=== PATIENT | male | born 1985 | race American Indian/Alaskan Native ===

== ENCOUNTER 2018-10-03 22:14 | Emergency (ER) | payer SELFPAY ==
--- NOTE | 2018-10-03 23:20 | Emergency Department Report ---
ED General Adult HPI - General Chief complaint: Psych Stated complaint: SUICIDAL IDEATIONS Time Seen by Provider: 10/03/18 23:03 Source: patient, EMS Mode of arrival: Stretcher Limitations: No Limitations - History of Present Illness Initial comments: 32 y.o. male with a history of HIV, Asthma presents after taking 7-10 excedrin pills in effort to kill self. Patient initially admits to suicidal ideation, depression and extreme stress and hopelessness. Patient currently denies SI, HI or auditory hallucinations. Patient states he had no prior inpatient stays in inpatient psychiatric facility. Patient states he took the Excedrin pills at 7 PM. Patient denies any vomiting. Patient denies any chest pain or shortness of breath. - Related Data Allergies Allergy/AdvReac Type Severity Reaction Status Date / Time No Known Allergies Allergy Verified 10/03/18 23:35 ED Review of Systems ROS: Stated complaint: SUICIDAL IDEATIONS Other details as noted in HPI Constitutional: denies: chills, fever Eyes: denies: eye pain, eye discharge, vision change ENT: denies: ear pain, throat pain Respiratory: denies: cough, shortness of breath, wheezing Cardiovascular: denies: chest pain, palpitations Endocrine: no symptoms reported Gastrointestinal: denies: abdominal pain, nausea, diarrhea Genitourinary: denies: urgency, dysuria Musculoskeletal: denies: back pain, joint swelling, arthralgia Skin: denies: rash, lesions Neurological: denies: headache, weakness, paresthesias Psychiatric: denies: anxiety, depression Hematological/Lymphatic: denies: easy bleeding, easy bruising ED Past Medical Hx - Past Medical History Previous Medical History?: Yes Hx Hypertension: Yes Hx Asthma: Yes Hx HIV: Yes - Surgical History Past Surgical History?: No - Social History Smoking Status: Former Smoker Substance Use Type: None ED Physical Exam - General Limitations: No Limitations General appearance: alert, other (angry; ) - Head Head exam: Present: atraumatic, normocephalic - Eye Eye exam: Present: normal appearance - ENT ENT exam: Present: mucous membranes moist - Neck Neck exam: Present: normal inspection - Respiratory Respiratory exam: Present: normal lung sounds bilaterally. Absent: respiratory distress - Cardiovascular Cardiovascular Exam: Present: regular rate, normal rhythm. Absent: systolic murmur, diastolic murmur, rubs, gallop - GI/Abdominal GI/Abdominal exam: Present: soft, normal bowel sounds - Rectal Rectal exam: Present: deferred - Extremities Exam Extremities exam: Present: normal inspection - Back Exam Back exam: Present: normal inspection - Neurological Exam Neurological exam: Present: alert, oriented X3 - Expanded Psychiatric Exam Expanded Focused psych exam: Present: other (angry; uncooperative) - Skin Skin exam: Present: warm, dry, intact, normal color. Absent: rash ED Course Vital Signs 10/03/18 10/04/18 10/04/18 22:21 00:15 00:31 Temperature 98.1 F Pulse Rate 80 67 72 Respiratory 12 16 14 Rate Blood Pressure 127/91 122/89 127/91 O2 Sat by Pulse 99 100 99 Oximetry 10/04/18 10/04/18 10/04/18 00:45 01:31 01:45 Temperature Pulse Rate 69 64 67 Respiratory 17 15 13 Rate Blood Pressure 122/89 111/66 111/66 O2 Sat by Pulse 100 98 99 Oximetry ED Medical Decision Making - Lab Data Result diagrams: 10/03/18 23:53 10/03/18 23:53 - Medical Decision Making Case discussed with poison control and patient to obtain lab work to determine Tylenol level as well as electronic, and hepatic function panel. Patient will be monitored for 16 hours status post time ingestion which was 7 PM. Patient to receive Ativan and Geodon therapy as he is uncooperative and stating that he will leave the emergency department. With a concern for patient's suicidality patient was placed on a 1013 and will await psychiatry consultation. Patient is medically clear and has been observed for 6 hour period from time of ingestion. - Differential Diagnosis Acute Psychosis; Electrolyte Abnormality; Anemia; Polysubstance Abuse; Critical care attestation.: If time is entered above; I have spent that time in minutes in the direct care of this critically ill patient, excluding procedure time. ED Disposition Clinical Impression: Psychosis, Overdose Disposition: [id number]/TX-[id number] ANOTHER TYPE HLTHCARE Is pt being admited?: No Condition: Stable Time of Disposition: 02:16 Print Language: GEORGIAN
[2018-10-03] MEDS ORDERED: ATIVAN IM STA (23:23)
[2018-10-03] MEDS ORDERED: GEODON IM ONE (23:23)
[2018-10-03 23:31] LABS: Bilirubin,Urine NEG (Negative); Blood,Urine NEG (Negative); Color,Urine Yellow (Yellow); Mucus,Urine 3+ /HPF
[2018-10-03 23:35] LABS: Amphetamine Screen,Urine PRESUMPTIVE NEGATIVE; Benzodiazepines Screen,Urine PRESUMPTIVE NEGATIVE; Cannabinoid Screen,Urine PRESUMPTIVE NEGATIVE; Cocaine Screen,Urine PRESUMPTIVE NEGATIVE; Methadone Screen,Urine PRESUMPTIVE NEGATIVE; Opiate Screen,Urine PRESUMPTIVE NEGATIVE
[2018-10-03] MEDS ORDERED: WATER FOR INJ Sterile (PF) 10 ML ONE (23:36)
[2018-10-04 00:09] LABS: Basophils % (Auto) 0.1 % (0.0-1.8); Eosinophils # (Auto) 0.1 K/mm3 (0.0-0.4); Eosinophils % (Auto) 0.9 % (0.0-4.3); Hematocrit 40.9 % (35.5-45.6); Hemoglobin 13.4 gm/dl (11.8-15.2); Lymphocytes # (Auto) 1.4 K/mm3 (1.2-5.4); Lymphocytes % (Auto) 16.5 % (13.4-35.0); Mean Corpuscular HGB Conc 33 % (32-34); Mean Corpuscular Volume 85 fl (84-94); Monocytes # (Auto) 0.5 K/mm3 (0.0-0.8); Monocytes % (Auto) 5.3 % (0.0-7.3); Red Cell Distribution Width 13.7 % (13.2-15.2)
[2018-10-04 00:28] LABS: Platelet Count 189 K/mm3 (140-440)
[2018-10-04 00:38] LABS: Alanine Aminotransferase 7 units/L (7-56); Albumin 4.4 g/dL (3.9-5); Bilirubin,Direct < 0.2 mg/dL (0-0.2)
[2018-10-04 00:39] LABS: Alanine Aminotransferase 8 units/L (7-56); Albumin 4.3 g/dL (3.9-5); BUN/Creatinine Ratio 9; Blood Urea Nitrogen 9 mg/dL (9-20); Calcium 9.3 mg/dL (8.4-10.2); Hemolysis Index 28
--- NOTE | 2018-10-04 11:00 | Consultation ---
History of Present Illness - Reason for Consult Consult date: 10/04/18 Reason for consult: Mental Health Evaluation Requesting physician: BONNY REGALADO - Chief Complaint Chief complaint: "I lost 2 family members" - History of Present Psychiatric Illness 32 y.o. AA male who presented to the ER for taking several Excedrin pills. Today the patient was irritable during the assessment. He stated that he lost his father and grandmother () most recently. He rate his depression 5/10, with 10 being the worse. He was asked about his mental health, he stated "I'm stable now, I should be able to leave." He was vague about why he took the pills. He did state that this was his first time taking pills when asked. He denies SI/HI's. The patient is adamant that he do not need medication for his depressi on. Medications and Allergies Allergies Allergy/AdvReac Type Severity Reaction Status Date / Time No Known Allergies Allergy Verified 10/03/18 23:35 Past psychiatric history - Past Medical History Past Medical History: HIV/AIDS, other (Asthma) Past Surgical History: No surgical history - past Psychiatric treatment and history psychiatric treatment history: Denies a psy hx and a fam psy hx. Denies a fam psy hx. - Social History Social history: lives with family Mental Status Exam - Vital signs Last Vital Signs Temp 98.2 F 10/04/18 04:02 Pulse 58 L 10/04/18 06:00 Resp 13 10/04/18 06:00 BP 112/71 10/04/18 06:00 Pulse Ox 97 10/04/18 06:00 - Exam Narrative exam: MSE: Appearance: in hospital attire Behavior: poor eye contact Speech: regular rate and tone Mood: "okay" Affect: congruent to mood Thought Process: circumstantial Thought Content: denies SI/HI's and AVH's Motor Activity: lying in bed Cognition: A/O x 3 Insight: variable Judgment: poor Results Result Diagrams: 10/03/18 23:53 10/03/18 23:53 Abnormal lab results 10/03/18 10/03/18 10/03/18 Range/Units 23:10 23:53 23:53 Seg Neutrophils % 77.2 H (40.0-70.0) % Potassium 3.3 L (3.6-5.0) mmol/L Ur Specific [place] 1.032 H (1.003-1.030) Salicylates (2.8-20.0) mg/dL Acetaminophen (10.0-30.0) ug/mL 10/03/18 10/03/18 Range/Units 23:53 23:53 Seg Neutrophils % (40.0-70.0) % Potassium (3.6-5.0) mmol/L Ur Specific [place] (1.003-1.030) Salicylates < 0.3 L (2.8-20.0) mg/dL Acetaminophen < 5.0 L (10.0-30.0) ug/mL All other labs normal. Assessment and Plan Assessment and plan: Impression: MDD, Single Episode. Complicated Grieving. Today the patient was irritable during the assessment. The patient is minimizing his actions. Recommendations/Plan: Continue 1013. Discuss risks/benefits of SSRI's with the patient, he refused medication at this time. Dispo: The patient was referred to inpatient psy services. Will staff with Dr Archana Agarwal.
--- NOTE | 2018-10-05 10:32 | Progress Note ---
Subjective - Reason for Consult Consult date: 10/05/18 Reason for consult: Psychiatry Follow-up - Chief Complaint Chief complaint: "I understand what I did" 32 y.o. AA male who presented to the ER for taking several Excedrin pills. Today the patient was calm and cooperative during the assessment. The patient was more engaging. He stated that he spoke with a close friend and his mother about his actions. He stated, "I could went about this in a different way." He stated that he would like to see a therapist in the outpatient setting when discharged. He denies SI/HI's and AVH's. Mental Status Exam - Vital signs Last Vital Signs Temp 98.2 F 10/05/18 07:00 Pulse 84 10/05/18 07:00 Resp 18 10/05/18 07:00 BP 118/81 10/05/18 07:00 Pulse Ox 99 10/05/18 07:00 - Exam Narrative exam: MSE: Appearance: in hospital attire Behavior: regular eye contact Speech: regular rate and tone Mood: "okay" Affect: congruent to mood Thought Process: logical Thought Content: denies SI/HI's and AVH's Motor Activity: lying in bed Cognition: A/O x 3 Insight: fair Judgment: variable to fair Assessment and Plan Impression: MDD, Single Episode. Complicated Grieving. Today the patient was calm and cooperative during the assessment. Recommendations/Plan: Continue 1013. Discuss risks/benefits of SSRI's with the patient, he refused medication at this time. Dispo: The patient was referred to inpatient psy services. Will staff with Dr Archana Agarwal.
[2018-10-06 08:38] VITALS: BP 115/77
--- NOTE | 2018-10-06 12:10 | Progress Note ---
Subjective - Reason for Consult Consult date: 10/06/18 Reason for consult: Psychiatry Follow-up - Chief Complaint Chief complaint: "I know how to handle thing now" 32 y.o. AA male who presented to the ER for taking several Excedrin pills. Today the patient was calm and cooperative during the assessment. Per Farrukh the patient's fiancee at [phone], he stated that the patient was "stressed out." He stated that the patient isn't known to hurt himself in anyway. He stated that he will attend therapy sessions with the patient for support. The patient denies SI/HI's and AVH's. Mental Status Exam - Vital signs Last Vital Signs Temp 98.2 F 10/06/18 08:37 Pulse 60 10/06/18 08:37 Resp 16 10/06/18 08:37 BP 115/77 10/06/18 08:37 Pulse Ox 98 10/06/18 08:37 - Exam Narrative exam: MSE: Appearance: calm, cooperative Behavior: regular eye contact Speech: regular rate and tone Mood: "better" Affect: congruent to mood Thought Process: logical Thought Content: denies SI/HI's and AVH's Motor Activity: lying in bed Cognition: A/O x 3 Insight: appropriate Judgment: appropriate Assessment and Plan Impression: MDD, Single Episode. Complicated Grieving. Today the patient was calm and cooperative during the assessment. The patient is no threat to self. Suicide Risk Assessment I. This screening and assessment is based on information collected from the following sources: II. SUICIDE RISK SCREENING (within last 30 days): A.) Suicidal thoughts/behaviors: Yes SUICIDE RISK ASSESSMENT III. FACTORS THAT INCREASE RISK: A.) Demographic and Substance Use Factors: Yes (Marijuana, Cocaine, and Marijuana) B.) Current/Recent Factors (within past 3 months): Psychosocial/Environmental Factors: Life Stressors Physical Illness: None Cognitive/Psychological Factors: None C.) Historical Factors: None D.) Diagnostic/Symptom/Treatment Factors: None E.) Acute Risk Factor Severity (DESC; MILD/MOD/SEVERE): Mild Other factors for this individual that increase risk: None IV. FACTORS THAT DECREASE RISK: Resilience/Protective Factors: Patient want to decrease his stress Other factors for this individual that decrease risk: Patient denies a desire to harm self V. Clinician's Formulation of Risk and Determination of level of Care: This is a 32 y.o. AA male who ingested several Excedrin pills prior to his arrival to the ER. He acknowledged that he should have not ingested the pills. He stated that he will follow-up with outpatient psy services once discharged. Since being hospitalized the patient has consistently denied the desire to harm himself. Additionally, he has become insightful about how to better address his current issues. The patient is not impaired by substance. He is able to take care of his ADLs and is not at imminent risk of harm to self or others. Consequently, it is the opinion of the treatment team that the patient is at low risk of suicide and does not meet criteria to continue an involuntary psychiatric hold. Estimation of Imminent Risk: Low due to the above explanation. Determination of Level of Care based on Suicide Risk: Outpatient follow-up. Narrative description of clinical reasoning. Given the fact that the patient is willing to engage in outpatient psy services care and has a supportive network ([facility], i is reasonable to expect that the patient will seek services. At this current time, he is not impulsive and does not have any risk factors to increase the likelihood of his impulsive behavior. Therefore, it is reasonable to expect that the patient will engage in outpatient/rehab services which will reduce further unsafe behaviors. . Plan and Interventions based on Suicide Risk: This patient will likely be stepped down to an outpatient mental health center in the community upon discharge and follow-up within 7 days of his discharge from the hospital. VII. Discharge/After Hours Support Plan: Patient can return back to the ER, call 911 or crisis line if symptoms of depression, anxiety, suicidality return. Recommendations/Plan: Rescind 1013. Discussed risks/benefits of SSRI's with the patient, he prefer talk therapy at this time. Discussed generalized coping skill with the patient, he verbalized understanding. Dispo: The patient can follow up with [facility] for outpatient psy services. Staffed with Dr Archana Agarwal.
== END 2018-10-06 14:25 | disposition home or self-care (01) ==
LOC: EEVIPCON 22:14 → ED 22:14
DX: T39.011A Poisoning by aspirin, accidental (unintentional), initial encounter (principal); F23 Brief psychotic disorder; F32.9 Major depressive disorder, single episode, unspecified; J45.909 Unspecified asthma, uncomplicated; I10 Essential (primary) hypertension; Z21 Asymptomatic human immunodeficiency virus [HIV] infection status; Z87.891 Personal history of nicotine dependence; Y92.89 Other specified places as the place of occurrence of the external cause
CPT/HCPCS: 36415; 80048; 80053; 80076; 80307; 81001; 83735; 85025; 93005; 93010; 99284; J2060; J3486; 80320; G0480

== ENCOUNTER 2018-12-18 18:54 | Emergency (ER) | payer SELFPAY ==
[2018-12-18 19:09] VITALS: BP 133/86
--- NOTE | 2018-12-18 19:12 | Event Note ---
ED Screening Note Date of service: 12/18/18 Time: 19:10 ED Screening Note: This is a 33 y.o. M. that presents to the ER with SOB and wheezing x 1 week. Denies chest pain, fever, chills, and myalgia. PMH asthma, HIV, and HTN Patient states he ran out of inhaler. This initial assessment/diagnostic orders/clinical plan/treatment(s) is/are subject to change based on patients health status, clinical progression and re- assessment by fellow clinical providers in the ED. Further treatment and workup at subsequent clinical providers discretion. Patient/guardian urged not to elope from the ED as their condition may be serious if not clinically assessed and managed. Initial orders include: CXR
--- NOTE | 2018-12-18 19:36 | XRay Report ---
CHEST 2 VIEWS INDICATION: cough and SOB. COMPARISON: None FINDINGS: Support devices: None. Heart: Within normal limits. Lungs/pleura: No acute air space or interstitial disease. No pneumothorax. Additional findings: None. IMPRESSION: 1. No acute findings. Signer Name: Quang Perez MD Signed: 12/18/2018 7:31 PM Workstation Name: [id number]
== END 2018-12-19 11:20 | disposition left against medical advice (07) ==
LOC: ED 18:54
DX: J45.909 Unspecified asthma, uncomplicated (principal); Z53.21 Procedure and treatment not carried out due to patient leaving prior to being seen by health care provider
CPT/HCPCS: 71046